=== PATIENT | male | born 1990 ===

== ENCOUNTER 2021-04-17 03:32 | Outpatient (CLI) | payer OTHER, SELFPAY ==
[2021-04-17 08:44] LABS: Absolute Basophil Count 0.01 10^3/uL (0.0-0.2); Absolute Eosinophil Count 0.09 10^3/uL (0.0-0.7); Absolute Lymphocyte Count 1.34 10^3/uL (1.2-3.4); Absolute Neutrophil Count 2.33 10^3/uL (1.2-6.7); Basophils % 0.2; Eosinophils % 2.2; HGB 12.6 g/dL (13.5-17.5); Lymphocytes % 32.1; MCH 32.1 pg (27.0-33.0); MCHC 33.2 % (32.0-36.0); MCV 96.7 fL (80-95); MPV 7.8 fL (8.0-11.0); Monocytes % 9.6; Neutrophils % 55.9; Nucleated RBC 0 %; Platelet Count 235 10^3/uL (130-400); RBC 3.93 10^6/uL (4.36-5.78); RDW-SD 46.6 fL; WBC 4.17 10^3/uL (4.4-10.8)
[2021-04-17 09:35] LABS: ALT 25 U/L (16-63); AST 16 U/L (15-37); Albumin 4.1 g/dL (3.4-5.0); Alkaline Phosphatase 88 U/L (46-116); Anion Gap 6.1 mmol/L (3-11); BUN 16 mg/dL (7-18); Bilirubin, Total 0.4 mg/dL (0.2-1.0); CO2 30.9 mmol/L (21.0-32.0); CREATININE 1.2 mg/dL (0.70-1.30); Chloride 101 mmol/L (98-107); GGT 30 U/L (15-85); Glucose 146 mg/dL (74-106); Potassium 3.8 mmol/L (3.5-5.1); Sodium 138 mmol/L (136-145); Total Protein 7.2 g/dL (6.4-8.2)
[2021-04-18 08:24] LABS: HBs Antibody, Quant <3.1 mIU/mL (See Note); Hepatitis B Surface Ab Negative (See Note)
[2021-04-18 08:32] LABS: Hepatitis B Surface Ag Negative (Negative)
[2021-04-18 09:10] LABS: Hep B Core Antibody Negative (Negative)
[2021-04-18 09:17] LABS: Hepatitis C Ab w Rflx HCV PCR Negative (Negative)
[2021-04-18 09:26] LABS: HIV-1/2 Ag & Ab Screen Negative (Negative)
[2021-04-18 09:45] LABS: Hep A Total Ab w Rflx IgM Negative (Negative)
== END 2021-04-17 03:33 | disposition home or self-care (01) ==
LOC: LBO 03:32
PROVIDERS: Visit Provider Physician Assistant
DX: F11.20 Opioid dependence, uncomplicated (principal); Z11.4 Encounter for screening for human immunodeficiency virus [HIV]; Z11.59 Encounter for screening for other viral diseases
CPT/HCPCS: 36415; 80053; 86704; 86706; 86709; 86803; 87340; 87389; 82977; 85025